=== PATIENT | male | born 1990 | race Caucasian/White ===

== ENCOUNTER 2016-08-25 15:17 | Emergency (ER) | payer SELFPAY ==
[2016-08-25] MEDS ORDERED: Lidocaine 1% 10 MG/ML - 20 ML VIAL SUBCUT ONE (15:36)
[2016-08-25 16:05] VITALS: RESP 16; TEMP 97.2
--- NOTE | 2016-08-25 17:44 | PDOC ---
Facial / Scalp Injury HPI - General Chief Complaint: Laceration / Wound Stated Complaint: head lac Date Seen by Provider: 08/25/16 Time Seen by Provider: 15:25 Source: POSITIVE: Patient Exam Limitations: POSITIVE: No limitations Nurse's Notes Reviewed & Considered: Yes - History of Present Illness Initial Comments: The patient is a 26-year-old male. He was working underneath a hay swather and he accidentally struck the top of his head on a bolt on the undercarriage of the swather. Patient had no loss of consciousness. No nausea or any neurologic symptoms. He has no headache except at the site of a laceration on the top of his head. Have you received a tetanus shot in the past 10 years?: Yes Body Location Affected: REPORTS: Scalp Timing: REPORTS: Abrupt Duration: 1 hour Severity: Moderate Quality: REPORTS: "Pain" (Local scalp tenderness at site of laceration) Location at Time of Onset: REPORTS: Home Context of Injury: REPORTS: Direct Blow, Incision Associated Symptoms: REPORTS: Recalls Injury, Recalls Coming to ER, Blow to Head. DENIES: Dazed, Seizure, Trouble Breathing, Memory Impairment, Lost Consciousness, Other Duration of Impaired Consciousness (in minutes):: 0 Any Prior Injuries Related to Current Complaint?: No - Patient Home Medications Home Medications: Home Medications NK [No Home Medications Reported] 11/28/13 - Patient Allergies Allergies/Adverse Reactions: Allergies Allergy/AdvReac Type Severity Reaction Status Date / Time No Known Allergies Allergy Verified 08/25/16 15:49 Past Medical History - heen HEENT History: Denies History Cardiovascular History: Denies History Respiratory History: Denies History Gastrointestinal History: Denies History Genitourinary History: Denies History Endocrine History: Denies History Musculoskeletal History: Denies History Neurological History: Denies History Blood Disorders: Denies History Psychiatric History: Denies History Cancer History: Denies History In Past Year Been Physically Harmed or Verbally Threatened: No History of MDRO: No Tobacco Use: Never Smoker Alcohol Use: Occasionally Substance Use Type: None Previous Surgical History: No Significant Family History: No pertinent family hx Past Medical History Reviewed: Reviewed - No Changes ROS - Limitations ROS Limitations: No Limitations Constitution: REPORTS: Denies Symptoms Cardiovascular: REPORTS: Denies Cardiac Symptoms Respiratory: REPORTS: Denies Resp Symptoms Neurological: REPORTS: Denies Neuro Symptoms Gastrointestinal: REPORTS: Denies GI Symptoms Endocrine: REPORTS: Denies Symptoms Musculoskeletal: REPORTS: Denies MS Symptoms Genitourinary: REPORTS: Denies Symptoms Eyes: REPORTS: Denies Symptoms ENT: REPORTS: Denies Symptoms Skin: REPORTS: Other (Approximately 2-1/2 inch scalp laceration top of head; see diagram) Lympathic: REPORTS: Denies Lympathic Symptoms Immunologic: POSITIVE: Denies Symptoms Psychiatric: POSITIVE: Denies Psych Symptoms Facial Exam - General Appearance General Appearance: POSITIVE: Alert, Cooperative, No Acute Distress. NEGATIVE: No Evidence of Trauma (Scalp laceration as above; see diagram) - HEENT Head / Face: POSITIVE: No Facial Swelling, Laceration (See diagram). NEGATIVE: Atraumatic, Normal Inspection Eyes: POSITIVE: Inspection Normal, PERRL, EOM's Intact, Eyelids Uninjured, Conjunctivae Uninjured, No Nystagmus, No Globe Trauma, Sclera Normal, Normal Corneal Inspection Ears: POSITIVE: Ears Normal Inspection, TM Normal Inspection, Auricle Normal, External Canal Normal Nose: POSITIVE: Inspection Normal, No Apparent Trauma, Nares Normal, No CSF Leak Oropharynx: POSITIVE: External Inspection Nml, Pharynx Inspect. 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 As Tested, Motor Normal, Sensation Normal, Mood Appropriate, Affect Appropriate - Respiratory / CVS Peripheral Pulses: Radial (R): 2+, Radial (L): 2+ - Skin Skin: NEGATIVE: Intact (2 and half centimeter laceration top of head carrying down into subcutaneous tissue; see diagram) Images - Head Head: 1 - Laceration, scalp Procedures - Laceration/Wound Repair Did patient have a laceration repair: Yes Site of Laceration/Wound: Top of scalp Wound Length (cm): 2.5 Wound's Depth, Shape: Into subcutaneous tissue, Linear Distal CMS: Yes Skin Prep: Sterile Field Maintained, Sterile Drapes Applied, Sterile Dressing Applied, Other (Normal saline) Local Anesthesia Used - Indicate Amt Used in Comment: Lidocaine 1%: Yes Irrigated w/ Saline (mL): 20 Wound Explored: No foreign body removed Wound Debrided: Minimal Wound Repaired With: Sutures single layer Suture Size/Type: 4:0 Number of Sutures: 2 Drain Placement: No Facial / Scalp Injury Progress - Patient's Progress Pain Medication Addressed: POSITIVE: Yes (Recommended Tylenol) School/Work Release Addressed: POSITIVE: Yes (Rest today) Re-Examine Time: 16:05 Re-Examine Comment: Primary closure complete Status: POSITIVE: Improved, Re-Examined (Primary closure complete) - Consult Counseled: POSITIVE: Patient, RE: DX, RE: Need for F/U Patient Care Time - Estimated PCT Patient Care Time (In Minutes): 25 Vital Signs - Recent Vital Signs Vital Signs: Vital Signs (Last 8 hours) Temp Pulse Resp BP Pulse Ox 08/25/16 15:18 97.2 F 79 16 144/84 96 - VS Reviewed Vital Signs Reviewed: Yes Discharge Clinical Impression: Laceration - injury Discharge Disposition: Discharged to Home Condition: Good Patient Instructions Given at Discharge: Laceration (ED) Additional Instructions: Keep wound clean. You may wash her hair. Rest today and avoid the heat. Return in 10 days for suture removal, or sooner at first sign of infection, or if condition worsens in any way. Follow Up With: ELIZA JAMESON FNP [Primary Care Provider] - (Instructions as above. Return in 10 days for suture removal, or sooner if condition worsens in any way.)
== END 2016-08-25 16:09 | disposition home or self-care (01) ==
LOC: ER 15:17
DX: S01.01XA Laceration without foreign body of scalp, initial encounter (principal); W30.89XA Contact with other specified agricultural machinery, initial encounter
CPT/HCPCS: 12001; 99282